=== PATIENT | female | born 1990 | race Caucasian/White ===

== ENCOUNTER 2019-01-29 17:42 | Emergency (ER) | payer SELFPAY ==
--- OUTSIDE RECORDS SUMMARY | 2019-01-29 17:45 | XMS REPORT ---
:1990 [facility] Address [address] [place] [address] Dr. Dinero [address] [place] [id number] Care Team Providers Name Role Phone Unavailable Unavailable Unavailable Problems This patient has no known problems. Allergies, Adverse Reactions, Alerts This patient has no known allergies or adverse reactions. Medications This patient has no known medications.
[2019-01-29] MEDS ORDERED: TETANUS & DIPHTHERIA TOX,ADULT 0.5 ML VIAL ONE (18:47)
--- NOTE | 2019-01-29 19:51 | RAD REPORT ---
EXAM DESCRIPTION: RAD - Foot Left 3 View - 01/29/2019 7:41 pm CLINICAL HISTORY: Foot pain, trauma, possible foreign body COMPARISON: None. FINDINGS: No fracture, dislocation or periosteal reaction. No acute or destructive bony process. Lateral view shows a 3 x 1 millimeter foreign body in the plantar soft tissues. This is difficult to localize on the AP or oblique view. Foreign body is probably in the region of the second metatarsal h ead. Foreign body is superficial just below the skin surface. IMPRESSION: Small foreign body in the superficial soft tissues at the level of the second metatarsal head.
--- NOTE | 2019-01-29 19:52 | RAD REPORT ---
EXAM DESCRIPTION: RAD - Hand Right 3 View - 01/29/2019 7:41 pm CLINICAL HISTORY: Trauma to the thumb, hand pain COMPARISON: None. FINDINGS: No fracture is identified. There is no dislocation or periosteal reaction noted. No forei gn body or other soft tissue abnormality. IMPRESSION: Negative right hand examination.
[2019-01-29] MEDS ORDERED: AMPICILLIN/SULBACT 1.5GM VIAL ONE (20:06)
[2019-01-29] MEDS ORDERED: LIDOCAINE 1% MPF 5 ML VIAL ONE (20:06)
[2019-01-29] MEDS ORDERED: LIDOCAINE 1% 20 ML MDV ONE (20:07)
[2019-01-29] MEDS ORDERED: NA CHLORIDE 0.9% 100 ML IV ONE (20:08)
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
--- NOTE | 2019-01-30 07:46 | RAD REPORT ---
EXAM DESCRIPTION: RAD - Foot Left 3 View - 01/29/2019 9:32 pm CLINICAL HISTORY: Left Foot pain FINDINGS: No fracture or dislocation is seen. Previously described foreign body within the plantar soft tissues of the foot no longer seen
== END 2019-01-29 21:46 | disposition home or self-care (01) ==
LOC: ER 17:42
PROC: 0JCR3ZZ Extirpation of Matter from Left Foot Subcutaneous Tissue and Fascia, Percutaneous Approach (ICD-10-PCS; principal; 2019-01-29)
DX: S91.322A Laceration with foreign body, left foot, initial encounter (principal); Y04.1XXA Assault by human bite, initial encounter; Y93.89 Activity, other specified; Y92.9 Unspecified place or not applicable; Z23 Encounter for immunization; F17.210 Nicotine dependence, cigarettes, uncomplicated
CPT/HCPCS: 90714; 96365; 96366; 99284; J0295